=== PATIENT | male | born 1980 | race Two or more races ===

== ENCOUNTER 2019-08-09 03:43 | Emergency (ER) | payer MEDICAID ==
[~2019-08-09] VITALS: Ht 193 cm; Wt 97.5 kg
--- NOTE | 2019-08-09 03:50 | NUR ---
ED Nurse Note: pt brought in by ambulance from the street for C/O abd pain 07/14 that started around 0300. pt is alert x4, VSS
[2019-08-09 03:53] VITALS: BP 152/98
--- NOTE | 2019-08-09 04:05 | NUR ---
ED Nurse Note: urine and blood sample sent down to lab
--- NOTE | 2019-08-09 04:06 | Emergency Room Report ---
History of Present Illness General Chief Complaint: Abdominal Pain Source: Patient Present Illness HPI Disclaimer: Please note that this report is being documented using [employer] technology. This can lead to erroneous entry secondary to incorrect interpretation by the dictating instrument. HPI: This a 38-year-old male presenting for evaluation of abdominal pain. He has a history of hypertension and seizure disorder which he takes Keppra. States he has sudden onset of right lower quadrant abdominal pain rating to the groin beginning approximately 30 minutes prior to arrival. He states he was standing at a bus stop with a friend when he felt something "pop" and then he had sudden right-sided abdominal pain. He felt diaphoretic and nauseous but did not vomit. He denies any recent diarrhea. Denies recent dysuria, penile discharge, hematuria. Notes some right-sided flank pain. Denies any chest pain or shortness of breath or fever. Prior history of kidney stones but all passed without retrieval or surgery. PMH: Kidney stones, seizure disorder, hypertension PSH: Denies Allergies: Morphine, Demerol Social Hx: Occasional alcohol use, regular tobacco use, polysubstance abuse but denies injecting drugs Allergies: Coded Allergies: MEPERIDINE (Verified Allergy, Unknown, 08/09/19) MORPHINE (Verified Allergy, Unknown, 08/09/19) Nursing Documentation-PMH Past Medical History: No History, Except For Hx Cardiac Problems: No Hx Hypertension: Yes Hx Asthma: Yes Hx Diabetes: No - Hypoglycemia Hx Cancer: No Hx Gastrointestinal Problems: No Hx Dialysis: No History Of Psychiatric Problem: No Hx Neurological Problems: Yes - Seizure Hx Cerebrovascular Accident: No Hx Seizures: Yes Review of Systems All Other Systems: negative except mentioned in HPI Physical Exam Vital Signs Date Time Temp Pulse Resp B/P (MAP) Pulse Ox O2 Delivery O2 Flow Rate FiO2 08/09/19 03:45 98.1 102 21 152/103 (119) 97 Room Air General: Awake and alert, appears uncomfortable HEENT: NC/AT. EOMI. Cardiovascular: Tachycardic. S1 and S2 normal. No murmur appreciated Resp: Normal work of breathing. No cough, wheezing or crackles appreciated Abdomen: Abdomen is soft, nondistended. Tenderness in the right lower quadrant. No rebound, no masses. Negative Rovsing sign. No upper quadrant tenderness or epigastric or periumbilical tenderness. Skin: Intact. No abrasions, laceration or rash over the exposed skin MSK: Normal tone and bulk. Moving all extremities. No obvious deformity. Neuro: Awake and alert. Mentating appropriately. Back/Spine: Right-sided CVA tenderness, negative on left. Medical Decision Making Diagnostic Impression: Primary Impression: Obstructive uropathy Additional Impressions: REX (acute kidney injury) Nephrolithiasis ER Course 38-year-old male with history of prior kidney stones presents for evaluation of sudden onset right lower quadrant pain radiating to the right groin along with some CVA tenderness. Differential includes was not limited to nephrolithiasis, appendicitis, constipation, cystitis, pyelonephritis, gastroenteritis, bowel obstruction, abdominal abscess, gas pain, hernia. Of these, kidney stone is most likely given his history and presentation. He has no clinical symptoms of appendicitis aside from right lower quadrant pain. Will obtain a CT scan of the abdomen, check labs, give IV fluids and Toradol. Laboratory Tests Test 08/09/19 04:05 White Blood Count 13.6 K/UL (4.8-10.8) H Red Blood Count 5.42 M/UL (4.70-6.10) Hemoglobin 16.6 G/DL (14.2-18.0) Hematocrit 48.5 % (42.0-52.0) Mean Corpuscular Volume 90 FL (80-99) Mean Corpuscular Hemoglobin 30.7 PG (27.0-31.0) Mean Corpuscular Hemoglobin Concent 34.3 G/DL (32.0-36.0) Red Cell Distribution Width 12.5 % (11.6-14.8) Platelet Count 384 K/UL (150-450) Mean Platelet Volume 5.9 FL (6.5-10.1) L Neutrophils (%) (Auto) 77.3 % (45.0-75.0) H Lymphocytes (%) (Auto) 13.9 % (20.0-45.0) L Monocytes (%) (Auto) 8.3 % (1.0-10.0) Eosinophils (%) (Auto) 0.1 % (0.0-3.0) Basophils (%) (Auto) 0.4 % (0.0-2.0) Urine Color Maria T Urine Appearance Slightly cloudy Urine pH 6.5 (4.5-8.0) Urine Specific [place] 1.020 (1.005-1.035) Urine Protein 2+ (NEGATIVE) H Urine Glucose (UA) Negative (NEGATIVE) Urine Ketones 2+ (NEGATIVE) H Urine Blood 5+ (NEGATIVE) H Urine Nitrite Negative (NEGATIVE) Urine Bilirubin Negative (NEGATIVE) Urine Ictotest Pending Urine Urobilinogen 4 MG/DL (0.0-1.0) H Urine Leukocyte Esterase 1+ (NEGATIVE) H Urine RBC 15-20 /HPF (0 - 0) H Urine WBC 5-10 /HPF (0 - 0) H Urine Squamous Epithelial Cells Few /LPF (NONE/OCC) Urine Bacteria Few /HPF (NONE) Urine Mucus Moderate /LPF (NONE/OCC) H Sodium Level 142 MMOL/L (136-145) Potassium Level 3.7 MMOL/L (3.5-5.1) Chloride Level 103 MMOL/L (98-107) Carbon Dioxide Level 32 MMOL/L (21-32) Anion Gap 7 mmol/L (5-15) Blood Urea Nitrogen 16 mg/dL (7-18) Creatinine 1.4 MG/DL (0.55-1.30) H Estimate Glomerular Filtration Rate 56.1 mL/min (>60) Glucose Level 110 MG/DL (74-106) H Calcium Level 9.3 MG/DL (8.5-10.1) Total Bilirubin 1.3 MG/DL (0.2-1.0) H Direct Bilirubin 0.3 MG/DL (0.0-0.3) Aspartate Amino Transferase (AST) 45 U/L (15-37) H Alanine Aminotransferase (ALT) 65 U/L (12-78) Alkaline Phosphatase 89 U/L (46-116) Total Protein 7.8 G/DL (6.4-8.2) Albumin 4.1 G/DL (3.4-5.0) Globulin 3.7 g/dL Albumin/Globulin Ratio 1.1 (1.0-2.7) Lipase 60 U/L (73-393) L Reevaluation Time: 05:48 Last Vital Signs Date Time Temp Pulse Resp B/P (MAP) Pulse Ox O2 Delivery O2 Flow Rate FiO2 08/09/19 03:45 98.1 102 21 152/103 (119) 97 Room Air Status: improved Reevaluation Impression CT shows approximately 7 mm stone at the right UVJ with mild hydronephrosis and hydroureter. Slight REX with a creatinine of 1.4 and the patient has an elevated white count, leukocytes in the urine, few bacteria but 1+ leukocyte esterase. Will treat with ciprofloxacin, continue IV hydration and pain control. The patient is homeless but states that he does have a physician. I am recommending admission at this time in light of reduced kidney function, hydronephrosis and a moderate-sized stone. Will admit for continued IV hydration, trend labs and pain control. Patient was given Flomax as well. He understands and agrees with this treatment plan. He will be transferred to a hospital within his care network for insurance purposes. Disposition: XFER SHT-TRM HOSP Condition: Stable Scripts Tamsulosin HCl (Flomax) 0.4 Mg Cap.er.24h 0.4 MG ORAL DAILY for 5 Days, #5 CAP Prov: Kofi White MD 08/09/19 Hydrocodone Bit/Acetaminophen 5-325* (NORCO 5-325*) 1 Each Tablet 1 TAB ORAL Q6H PRN for For Pain, #10 TAB 0 Refills Prov: Kofi White MD 08/09/19 Ibuprofen* (MOTRIN*) 600 Mg Tablet 600 MG ORAL Q8H PRN for For Pain, #30 TAB 0 Refills Prov: Kofi White MD 08/09/19 Ciprofloxacin Hcl* (CIPROFLOXACIN HCL*) 500 Mg Tablet 500 MG ORAL Q12H for 7 Days, #14 TAB 0 Refills Prov: Kofi White MD 08/09/19 Referrals: [facility],REFERRING (PCP) Kofi White MD Aug 09, 2019 04:06
[2019-08-09] MEDS ORDERED: Ketorolac 30mg Inj IV ONE (04:15)
[2019-08-09 04:21] LABS: APPEARANCE,URINE SLIGHTLY CLOUDY; BASOPHILS % (AUTO) 0.4 % (0.0-2.0); BILIRUBIN, URINE NEGATIVE (NEGATIVE); COLOR,URINE AMBER; EOSINOPHILS % (AUTO) 0.1 % (0.0-3.0); GLUCOSE, URINE (UA) NEGATIVE (NEGATIVE); HEMATOCRIT 48.5 % (42.0-52.0); HEMOGLOBIN 16.6 G/DL (14.2-18.0); KETONES,URINE 2+ (NEGATIVE); LEUKOCYTE ESTERASE ,URINE 1+ (NEGATIVE); LYMPHOCYTES % (AUTO) 13.9 % (20.0-45.0); MEAN CORPUSCULAR VOLUME 90 FL (80-99); MONOCYTES % (AUTO) 8.3 % (1.0-10.0); NEUTROPHILS % (AUTO) 77.3 % (45.0-75.0); NITRITE,URINE NEGATIVE (NEGATIVE); PH,URINE 6.5 (4.5-8.0); PLATELET COUNT 384 K/UL (150-450); PROTEIN,URINE 2+ (NEGATIVE); RED BLOOD COUNT 5.42 M/UL (4.70-6.10); RED CELL DISTRIBUTION WIDTH 12.5 % (11.6-14.8); UROBILINOGEN,URINE 4 MG/DL (0.0-1.0); WHITE BLOOD COUNT 13.6 K/UL (4.8-10.8)
[2019-08-09 04:31] LABS: ANION GAP 7 mmol/L (5-15); BLOOD UREA NITROGEN 16 mg/dL (7-18); CALCIUM 9.3 MG/DL (8.5-10.1); CARBON DIOXIDE 32 MMOL/L (21-32); CHLORIDE 103 MMOL/L (98-107); CREATININE 1.4 MG/DL (0.55-1.30); POTASSIUM 3.7 MMOL/L (3.5-5.1); SODIUM 142 MMOL/L (136-145)
[2019-08-09 04:42] LABS: ALANINE AMINOTRANSFERASE 65 U/L (12-78); ALBUMIN 4.1 G/DL (3.4-5.0); ALBUMIN/GLOBULIN RATIO 1.1 (1.0-2.7); ALKALINE PHOSPHATASE 89 U/L (46-116); ASPARTATE AMINO TRANSFERASE 45 U/L (15-37); BILIRUBIN,TOTAL 1.3 MG/DL (0.2-1.0)
[2019-08-09 04:46] LABS: BILIRUBIN,DIRECT 0.3 MG/DL (0.0-0.3)
--- NOTE | 2019-08-09 05:00 | NUR ---
ED Nurse Note: left for ct
--- NOTE | 2019-08-09 05:07 | NUR ---
ED Nurse Note: back from ct
[2019-08-09] MEDS ORDERED: HYDROcodone/Acetamin 7.5/325 tab ORAL ONE (05:45)
[2019-08-09] MEDS ORDERED: Tamsulosin 0.4mg cap ORAL ONE (05:45)
--- NOTE | 2019-08-09 05:49 | Diagnostic Imaging Report ---
EXAM: CT Abdomen and Pelvis Without Intravenous Contrast CLINICAL HISTORY: PAIN TECHNIQUE: Axial computed tomography images of the abdomen and pelvis without intravenous contrast. CTDI is 21.2 mGy and DLP is 1279.8 mGy-cm. One or more of the following dose reduction techniques were used: automated exposure control, adjustment of the mA and or kV according to patient size, use of iterative reconstruction technique. COMPARISON: none FINDINGS: Lung bases: Unremarkable. No mass. No consolidation. ABDOMEN: Liver: Unremarkable. Gallbladder and bile ducts: Unremarkable. No calcified stones. No ductal dilation. Pancreas: Unremarkable. No ductal dilation. Spleen: Unremarkable. No splenomegaly. Adrenals: Unremarkable. No mass. Kidneys and ureters: A 7 mm stone at the right ureterovesicular junction is associated with mild right hydronephrosis and hydroureter with no significant perirenal fluid. Punctate left nephrolithiasis at the superior pole is also noted. Stomach and bowel: Unremarkable. No obstruction. No mucosal thickening. PELVIS: Appendix: No findings to suggest acute appendicitis. Bladder: Unremarkable. No stones. Reproductive: Unremarkable as visualized. ABDOMEN and PELVIS: Intraperitoneal space: Unremarkable. No free air. No significant fluid collection. Bones joints: No acute fracture. No dislocation. Soft tissues: Unremarkable. Vasculature: Unremarkable. No abdominal aortic aneurysm. Lymph nodes: Unremarkable. No enlarged lymph nodes. IMPRESSION: 1. Obstructing 7 mm stone at the left ureterovesical junction associated with mild right hydronephrosis and hydroureter. 2. Radiation dose readings are greater than usually anticipated for patient body habitus and exam type. Correlate clinically. <MYCVCSECTION> [employer] 08 09 19 05:54 Verify Receipt Verified receipt with virginie for dr GARCIA on 08 09 05:54 (-07:00)
[2019-08-09] MEDS ORDERED: FLOMAX0.4 MG ORAL (06:12)
[2019-08-09] MEDS ORDERED: NORCO 5-325 TA1 EACH ORAL (06:12)
[2019-08-09] MEDS ORDERED: IBUPROFEN600 MG ORAL (06:12)
[2019-08-09] MEDS ORDERED: CIPROFLOXACIN500 M2 ORAL (06:12)
[2019-08-09 06:29] VITALS: BP 148/90
--- NOTE | 2019-08-09 06:30 | NUR ---
ED Nurse Note: pt is sitting in bed, VSS, no acute distress is noted at this time.
--- NOTE | 2019-08-09 07:10 | NUR ---
ED Nurse Note: report given to QAMAR lindsey
--- NOTE | 2019-08-09 07:20 | NUR ---
ED Nurse Note: pt is in stable condition, AOX4, no SOB or dyspnea. He is ambulatory with a steady gait. pt reports feeling nauseated, especially when he uses the restroom. pt denies any pain right now, he states he just feels a little bit of "pressure." IV in Left AC flushes without complications. vital signs are stable
[2019-08-09 07:30] VITALS: BP 138/83
--- NOTE | 2019-08-09 08:01 | NUR ---
ED Nurse Note: pt asking for food, ate a turkey sandwich and apple juice. ERMD is aware. pt will be transferred to [facility] via [facility], ETA is 0900.
--- NOTE | 2019-08-09 08:12 | NUR ---
ED Nurse Note: I called and gave report to Josesito FOOTE at [facility] at . pt is still in stable condition, awaiting ambulance arrival for transportation to [facility]
--- NOTE | 2019-08-09 08:41 | NUR ---
ED Nurse Note: pt transported to [place] via [facility]. report and information packet given to EMS personnel [place]. pt is in stable condition, AOx4, ambulatory and in no acute distress at this time.
== END 2019-08-09 08:40 | disposition short-term general hospital (02) ==
LOC: EDBD 03:43 → EMR 03:59
DX: N20.0 Calculus of kidney (principal); N13.9 Obstructive and reflux uropathy, unspecified; N17.9 Acute kidney failure, unspecified; I10 Essential (primary) hypertension; J45.909 Unspecified asthma, uncomplicated; Z88.6 Allergy status to analgesic agent; Z88.8 Allergy status to other drugs, medicaments and biological substances; G40.909 Epilepsy, unspecified, not intractable, without status epilepticus; Z87.442 Personal history of urinary calculi
CPT/HCPCS: 36415; 74176; 80053; 81003; 82248; 83690; 85025; 96361; 96374; 96375; 96376; J0744; J1885; J2405; Z7502; 99284